=== PATIENT | female | born 1990 | race Caucasian/White ===

== ENCOUNTER 2023-08-12 04:35 | Inpatient (IN) | payer OTHER ==
[~2023-08-12] VITALS: Ht 175.3 cm; Wt 79.8 kg
[2023-08-12] VITALS (7 sets, daily range): BP systolic 105–115; BP diastolic 54–86; PULSE 106–132; RESP 16–29; TEMP 97.9–99.8; O2SAT 99–100
[2023-08-12] MEDS ORDERED: NACL 0.9% 1,000 ML IV ONE ×2 (04:45→04:50)
[2023-08-12] MEDS ORDERED: ACETAMINOPHEN EXTRA STRENGTH 500 MG TAB PO ONE (05:25)
[2023-08-12] MEDS ORDERED: KETOROLAC 30 MG/ML VIAL IVP ONE (05:25)
[2023-08-12] MEDS ORDERED: METOCLOPRAMIDE 10 MG/2 ML INJ VIAL IVP ONE (05:25)
[2023-08-12 05:32] LABS: BILIRUBIN,URINE 1+ (NEGATIVE); BLOOD, URINE 2+ (NEGATIVE); COLOR,URINE YELLOW (YELLOW); NITRITE, URINE NEGATIVE (NEGATIVE); PROTEIN,URINE 2+ (NEGATIVE); UGLUCOSE 2+ (NEGATIVE); UROBILINOGEN,URINE 0.2 EU/dL (0.2 - 1)
[2023-08-12 05:38] LABS: BASOPHILS % (AUTO) 0.1 % (0.0-2.0); HEMATOCRIT 41.6 % (36-48); HEMOGLOBIN 13.2 g/dL (12.0-16.0); LYMPHOCYTES # (AUTO) 0.5 K/uL (2.5-16.5); LYMPHOCYTES % (AUTO) 4.1 % (20.5-51.1); MEAN CORPUSCULAR HEMOGLOBIN 25 pg (27-31); MEAN CORPUSCULAR HGB CONC 32 g/dL (33-37); MEAN CORPUSCULAR VOLUME 79.7 fL (80-94); MONOCYTES # (AUTO) 0.7 K/uL (0.8-1.0); MONOCYTES % (AUTO) 5.9 % (1.7-9.3); NEUTROPHILS # (AUTO) 11.3 K/uL (1.8-7.7); NEUTROPHILS % (AUTO) 89.9 % (42.2-75.2); PLATELET COUNT (AUTO) 263 K/uL (140-450); RED BLOOD CELL COUNT(AUTO) 5.23 MIL/uL (4.20-5.40); RED CELL DISTRIBUTION WIDTH 14.7 % (11.6-13.7); WHITE BLOOD COUNT (AUTO) 12.5 K/uL (4.8-10.8)
[2023-08-12 06:44] LABS: ICTOTEST NEGATIVE (NEGATIVE)
[2023-08-12 06:45] LABS: APPEARANCE,URINE SLIGHTLY HAZY (CLEAR)
[2023-08-12 06:46] LABS: LEUKOCYTE ESTERASE ,URINE 1+ (NEGATIVE)
[2023-08-12 06:47] LABS: ALBUMIN 3.3 g/dL (3.4-5.0); CALCIUM 9.3 mg/dL (8.5-10.1); CREATININE 1.3 mg/dL (0.6-1.3); POTASSIUM 5.4 mmol/L (3.5-5.1); TOTAL BILIRUBIN 0.4 mg/dL (0.0-1.0); TOTAL PROTEIN, SERUM 9.8 g/dL (6.4-8.2)
[2023-08-12 06:50] LABS: CARBON DIOXIDE 8.4 mmol/L (21-32)
[2023-08-12] MEDS ORDERED: INSULIN REGULAR, HUMAN 100 UNIT in NACL 0.9% 100 ML IV SCH ×2 (06:50)
[2023-08-12] MEDS ORDERED: NACL 0.9% 1,000 ML IV SCH (06:50)
[2023-08-12] MEDS ORDERED: INSULIN REGULAR, HUMAN 100 UNIT/ML VIAL SUBQ ONE (06:50)
[2023-08-12] MEDS ORDERED: DEXTROSE 50% 50 ML SYR IVP PRN ×2 (06:50→10:30)
[2023-08-12] MEDS: NACL 0.9% 1,000 ML IV ONE ×2 (06:53→06:59)
[2023-08-12] MEDS: BLOOD GLUCOSE MONITORING 1 DEV DEV FS SCH ×18 (06:55→23:36)
[2023-08-12 06:58] LABS: BACTERIA,URINE OCCASSIONAL /HPF (None Seen); SQUAMOUS EPITHELIAL CELL,UR 0-3 (FEW) /LPF (0-3 (FEW))
[2023-08-12] MEDS ORDERED: cefTRIAXone 1,000 MG VIAL ONE (08:01)
[2023-08-12 09:25] LABS: LACTIC ACID 1.2 mmol/L (0.4-2.0)
[2023-08-12 09:37] LABS: FLU A ANTIGEN negative (NEGATIVE); FLU B ANTIGEN negative (NEGATIVE)
[2023-08-12] MEDS ORDERED: INSU100I28 SUBQ (10:18)
[2023-08-12] MEDS ORDERED: INSU100I75 SUBQ (10:18)
[2023-08-12] MEDS ORDERED: LORazepam 1 MG TAB PO PRN (10:30)
[2023-08-12] MEDS ORDERED: ZOLPIDEM 5 MG TAB PO PRN (10:30)
[2023-08-12] MEDS ORDERED: HYDROcodone/APAP 5/325 MG 1 TAB TAB PO PRN (10:30)
[2023-08-12] MEDS ORDERED: ONDANSETRON 4 MG/2 ML VIAL IVP PRN (10:30)
[2023-08-12] MEDS: DEXT 5% / NACL 0.45% 1,000 ML IV SCH ×4 (11:08→21:50)
[2023-08-12 12:40] LABS: ANION GAP 25.8 (8-16); CALCIUM 8.3 mg/dL (8.5-10.1); POTASSIUM 4.4 mmol/L (3.5-5.1)
[2023-08-12 12:43] LABS: MAGNESIUM 1.9 mg/dL (1.8-2.4); PHOSPHORUS 2.1 mg/dL (2.5-4.9)
[2023-08-12 12:55] LABS: CARBON DIOXIDE 8.6 mmol/L (21-32)
[2023-08-12] MEDS: INSULIN REGULAR, HUMAN 100 UNIT in NACL 0.9% 100 ML IV SCH ×2 (13:44)
[2023-08-12 17:49] LABS: ANION GAP 23.1 (8-16); CALCIUM 8.2 mg/dL (8.5-10.1); CARBON DIOXIDE 11.3 mmol/L (21-32); CREATININE 0.8 mg/dL (0.6-1.3); POTASSIUM 4.4 mmol/L (3.5-5.1)
[2023-08-12 18:12] LABS: MAGNESIUM 1.6 mg/dL (1.8-2.4); PHOSPHORUS 1.4 mg/dL (2.5-4.9)
[2023-08-12] MEDS: NACL 0.9% 1,000 ML IV SCH ×2 (19:11→23:00)
[2023-08-12 21:13] LABS: ANION GAP 16.7 (8-16); CALCIUM 8.4 mg/dL (8.5-10.1); CREATININE 0.9 mg/dL (0.6-1.3); POTASSIUM 3.7 mmol/L (3.5-5.1)
[2023-08-12 21:45] LABS: MAGNESIUM 1.6 mg/dL (1.8-2.4)
[2023-08-12] MEDS ORDERED: MAG SULF 2000 MG/WATER PREMIX 100 ML IV PRN (22:05)
[2023-08-12] MEDS ORDERED: POTASSIUM PHOSPHATE 15 MM in NACL 0.9% 250 ML IV ONE (22:05)
[2023-08-12] MEDS ORDERED: KCL 20 MEQ IN 100 mL PREMIX 200 ML IV PRN (22:05)
[2023-08-12] MEDS: ACETAMINOPHEN 325 MG TAB PO PRN (23:49)
[2023-08-13] VITALS (22 sets, daily range): BP systolic 88–125; BP diastolic 53–76; PULSE 91–117; RESP 15–25; TEMP 98.8–101.4; O2SAT 97–100
[2023-08-13] MEDS: BLOOD GLUCOSE MONITORING 1 DEV DEV FS SCH ×12 (00:49→21:13)
[2023-08-13] MEDS ORDERED: SODIUM PHOS / POTASSIUM PHOS 1 PKT PDR ONE (00:56)
[2023-08-13 01:05] LABS: ANION GAP 16.8 (8-16); CALCIUM 7.6 mg/dL (8.5-10.1); CARBON DIOXIDE 15.3 mmol/L (21-32); CREATININE 0.8 mg/dL (0.6-1.3); POTASSIUM 3.1 mmol/L (3.5-5.1)
[2023-08-13 01:09] LABS: MAGNESIUM 1.5 mg/dL (1.8-2.4)
[2023-08-13 01:25] LABS: PHOSPHORUS 0.8 mg/dL (2.5-4.9)
[2023-08-13] MEDS: INSULIN REGULAR, HUMAN 100 UNIT in NACL 0.9% 100 ML IV SCH ×2 (02:57)
[2023-08-13] MEDS: DEXT 5% / NACL 0.45% 1,000 ML IV SCH ×2 (05:28→07:50)
[2023-08-13] MEDS ORDERED: POTASSIUM PHOSPHATE 15 MM in NACL 0.9% 250 ML IV SCH (08:00)
[2023-08-13] MEDS: NACL 0.9% 1,000 ML IV SCH (08:39)
[2023-08-13] MEDS: ACETAMINOPHEN 325 MG TAB PO PRN ×2 (09:00→20:58)
[2023-08-13 09:12] LABS: ANION GAP 13.4 (8-16); CALCIUM 7.6 mg/dL (8.5-10.1); CARBON DIOXIDE 17.7 mmol/L (21-32); CREATININE 0.6 mg/dL (0.6-1.3); POTASSIUM 3.1 mmol/L (3.5-5.1)
[2023-08-13] MEDS ORDERED: POTASSIUM CHLORIDE 10 MEQ TABER PO SCH (10:13)
[2023-08-13] MEDS ORDERED: INSULIN LANTUS 100 UNITS/ML 10 ML VIAL SUBQ SCH (11:00)
[2023-08-13] MEDS: DOCUSATE SODIUM 100 MG GELCAP PO SCH (11:01)
[2023-08-13 12:30] LABS: BASOPHILS % (AUTO) 0.2 % (0.0-2.0); HEMATOCRIT 32.6 % (36-48); HEMOGLOBIN 10.8 g/dL (12.0-16.0); LYMPHOCYTES # (AUTO) 0.7 K/uL (2.5-16.5); LYMPHOCYTES % (AUTO) 9.9 % (20.5-51.1); MEAN CORPUSCULAR HEMOGLOBIN 25 pg (27-31); MEAN CORPUSCULAR HGB CONC 33 g/dL (33-37); MONOCYTES # (AUTO) 0.5 K/uL (0.8-1.0); MONOCYTES % (AUTO) 7.5 % (1.7-9.3); NEUTROPHILS # (AUTO) 5.6 K/uL (1.8-7.7); NEUTROPHILS % (AUTO) 82.4 % (42.2-75.2); PLATELET COUNT (AUTO) 192 K/uL (140-450); RED BLOOD CELL COUNT(AUTO) 4.29 MIL/uL (4.20-5.40); RED CELL DISTRIBUTION WIDTH 14.6 % (11.6-13.7); WHITE BLOOD COUNT (AUTO) 6.8 K/uL (4.8-10.8)
[2023-08-13 12:43] LABS: ANION GAP 17.3 (8-16); CALCIUM 7.7 mg/dL (8.5-10.1); CARBON DIOXIDE 15.2 mmol/L (21-32); CREATININE 0.6 mg/dL (0.6-1.3); POTASSIUM 3.5 mmol/L (3.5-5.1)
[2023-08-13] MEDS ORDERED: MAG SULF 2000 MG/WATER PREMIX 50 ML IV SCH (14:00)
[2023-08-13] MEDS ORDERED: KCL 20 MEQ IN 100 mL PREMIX 200 ML IV SCH (16:00)
[2023-08-13] MEDS: INSULIN LISPRO SLIDING SCALE 100 UNITS/ML VIAL SUBQ SCH ×2 (16:07→21:18)
[2023-08-13 17:04] LABS: ANION GAP 15.5 (8-16); CALCIUM 7.7 mg/dL (8.5-10.1); CARBON DIOXIDE 18.9 mmol/L (21-32); CREATININE 0.6 mg/dL (0.6-1.3); POTASSIUM 3.4 mmol/L (3.5-5.1)
[2023-08-13] MEDS: AMPICILLIN 2,000 MG in NACL 0.9% 100 ML IV SCH (21:18)
[2023-08-14] VITALS (7 sets, daily range): BP systolic 111–121; BP diastolic 65–76; PULSE 81–102; RESP 18–20; TEMP 97.5–98.9; O2SAT 96–100
[2023-08-14 00:21] LABS: ANION GAP 12.8 (8-16); CALCIUM 7.6 mg/dL (8.5-10.1); CARBON DIOXIDE 20.6 mmol/L (21-32); CREATININE 0.5 mg/dL (0.6-1.3); POTASSIUM 3.4 mmol/L (3.5-5.1)
[2023-08-14] MEDS: ACETAMINOPHEN 325 MG TAB PO PRN (04:32)
[2023-08-14] MEDS: AMPICILLIN 2,000 MG in NACL 0.9% 100 ML IV SCH (04:45)
[2023-08-14] MEDS: INSULIN LISPRO SLIDING SCALE 100 UNITS/ML VIAL SUBQ SCH ×2 (06:51→12:29)
[2023-08-14] MEDS: BLOOD GLUCOSE MONITORING 1 DEV DEV FS SCH ×2 (07:38→11:30)
[2023-08-14 08:03] LABS: ANION GAP 16.5 (8-16); CALCIUM 7.5 mg/dL (8.5-10.1); CARBON DIOXIDE 17.1 mmol/L (21-32); CREATININE 0.5 mg/dL (0.6-1.3); POTASSIUM 3.6 mmol/L (3.5-5.1)
[2023-08-14] MEDS: DOCUSATE SODIUM 100 MG GELCAP PO SCH (08:22)
[2023-08-14] MEDS ORDERED: INSU100I28 SUBQ (10:07)
[2023-08-14] MEDS ORDERED: INSU100I75 SUBQ (10:07)
[2023-08-14] MEDS ORDERED: [UNRECOGNIZED DRUG - CODE] (10:08)
[2023-08-14] MEDS ORDERED: [UNRECOGNIZED DRUG - CODE] MC (10:11)
[2023-08-14] MEDS ORDERED: AMOX500T3 PO (10:15)
== END 2023-08-14 14:00 | disposition home or self-care (01) | DRG 720 ==
LOC: MED 04:35 → MTU 10:33 → MIC 17:39 → MTU 08-14 01:50
PROVIDERS: ADMIT Hospitalist; ATTEND Hospitalist
DX: A41.9 Sepsis, unspecified organism (principal); N17.9 Acute kidney failure, unspecified; E11.10 Type 2 diabetes mellitus with ketoacidosis without coma; E87.1 Hypo-osmolality and hyponatremia; Z20.822 Contact with and (suspected) exposure to COVID-19; E86.0 Dehydration; N39.0 Urinary tract infection, site not specified; Z79.4 Long term (current) use of insulin; B95.8 Unspecified staphylococcus as the cause of diseases classified elsewhere
CPT/HCPCS: 36415; 71045; 80048; 80053; 81001; 82009; 82948; 83605; 83690; 83735; 84100; 84484; 84703; 85025; 87040; 87081; 87086; 87186; 93005; 96361; 96365; 96372; 96375; 99291; J0290; J0696; J1644; J1815; J1885; J2765; J3475; J3480; J7030; J7060; Q0092